=== PATIENT | female | born 1970 | race African-American/Black ===

== ENCOUNTER → 2016-06-20 | Day surgery (SDC) | payer MEDICAID ==
[~2016-06-20] VITALS: Ht 162.6 cm; Wt 73.5 kg
[~2016-06-20] MED LIST: BALANCED SALT IRRIG SOLN 15ML ONE; BALANCED SALT IRRIG SOLN COMB1 500ML OP ONE; BUPIVACAINE HCL/PF 0.75% (7.5MG/ML) 10ML ONE; CIPROFLOXACIN 0.3% OPHTH SOLN 2.5ML ONE; CYCLOPENTOLATE HCL 1% OPHTH DROPS 2ML LEFTEYE ONE; CYCLOPENTOLATE HCL 1% OPHTH DROPS 2ML ONE; DEXTROSE 50% WATER 50ML SYRINGE IV ONE; FENTANYL CITRATE/PF 50MCG/ML 2ML VIAL ONE; HYALURONATE SODIUM 14 MG/ML 0.85ML SYRINGE IO ONE; INSLAN SQ; INSU100I3 SQ; LACTATED RINGERS 1,000 ML IV SCH; LIDOCAINE HCL 2%/EPINEPHRINE 1:100,000 20 ML VIAL INFIL ONE; LISI-604 PO; MIDAZOLAM HCL 2 MG/2 ML VIAL ONE; MORPHINE SULFATE 2 MG/ML CPJ (NOT FOR IM USE) IV PRN; NAPR-681 PO; ONDANSETRON HCL 4MG/2ML VIAL IV PRN; PHENYLEPHRINE HCL 10% OPHTH DROPS 5ML LEFTEYE ONE; PREDNISOLONE ACETATE 1% OPHTH DROPS 1ML ONE; PROPOFOL 200MG/20ML VIAL IV ONE; RANI150T7 PO; SIMV40TA5 PO; SODIUM CHLORIDE 0.9% 1,000 ML IV SCH; TETRACAINE 0.5% OPHTH DROPS 4ML ONE; TROPICAMIDE 1% OPHTH DROPS 15ML LEFTEYE ONE; TROPICAMIDE 1% OPHTH DROPS 15ML ONE
[2016-06-20 11:00] LABS: UCG SCREEN NEGATIVE
== END | disposition home or self-care (01) ==
LOC: OR 10:15
PROVIDERS: ATTEND Ophthalmology
DX: H26.8 Other specified cataract (principal); I10 Essential (primary) hypertension; E11.9 Type 2 diabetes mellitus without complications; D64.89 Other specified anemias; E78.5 Hyperlipidemia, unspecified
CPT/HCPCS: 66984; 81025; 82962; J2250; J2405; J3010; J3490; J7120; J2704

== ENCOUNTER → 2022-04-04 | Day surgery (SDC) | payer MEDICAID ==
[~2022-04-04] VITALS: Ht 160 cm; Wt 63.5 kg
[~2022-04-04] MED LIST changes: +ATOR40TA70 PO; +BALANCED SALT IRRIG SOLN COMB1 500ML OP NR; -BALANCED SALT IRRIG SOLN COMB1 500ML OP ONE; -BUPIVACAINE HCL/PF 0.75% (7.5MG/ML) 10ML ONE; -CYCLOPENTOLATE HCL 1% OPHTH DROPS 2ML LEFTEYE ONE; +CYCLOPENTOLATE HCL 1% OPHTH DROPS 2ML RIGHTEYE SCH; -DEXTROSE 50% WATER 50ML SYRINGE IV ONE; +HYALURONATE SODIUM 10 MG/ML 0.55ML SYRINGE IO ONE; -HYALURONATE SODIUM 14 MG/ML 0.85ML SYRINGE IO ONE; -INSLAN SQ; +INSU100I24 SQ; -INSU100I3 SQ; +INSU100V34 SQ; -LACTATED RINGERS 1,000 ML IV SCH; -LIDOCAINE HCL 2%/EPINEPHRINE 1:100,000 20 ML VIAL INFIL ONE; +LIDOCAINE HCL/PF 2% 20 MG/ML 10ML VIAL ONE; -LISI-604 PO; +LISI20TA31 PO; -MORPHINE SULFATE 2 MG/ML CPJ (NOT FOR IM USE) IV PRN; +NEO/POLYMYX B SULF/DEXAMETH OPHTH OINT 3.5GM ONE; -ONDANSETRON HCL 4MG/2ML VIAL IV PRN; -PHENYLEPHRINE HCL 10% OPHTH DROPS 5ML LEFTEYE ONE; +PHENYLEPHRINE HCL 10% OPHTH DROPS 5ML ONE; +PHENYLEPHRINE HCL 10% OPHTH DROPS 5ML RIGHTEYE SCH; -PREDNISOLONE ACETATE 1% OPHTH DROPS 1ML ONE; +PREDNISOLONE ACETATE 1% OPHTH DROPS 5ML ONE; -PROPOFOL 200MG/20ML VIAL IV ONE; -RANI150T7 PO; -SIMV40TA5 PO; -TROPICAMIDE 1% OPHTH DROPS 15ML LEFTEYE ONE; +TROPICAMIDE 1% OPHTH DROPS 15ML RIGHTEYE SCH; +TRYPAN BLUE 0.5 ML DISP.SYRIN IO ONE
== END | disposition home or self-care (01) ==
LOC: OR 05:35
PROVIDERS: ATTEND Ophthalmology
DX: E11.36 Type 2 diabetes mellitus with diabetic cataract (principal); H25.89 Other age-related cataract; I10 Essential (primary) hypertension; E78.00 Pure hypercholesterolemia, unspecified; Z79.84 Long term (current) use of oral hypoglycemic drugs; Z79.899 Other long term (current) drug therapy; Z98.890 Other specified postprocedural states; Z20.822 Contact with and (suspected) exposure to COVID-19
CPT/HCPCS: 66982; 82962; 87426; C9803; J2250; J3010; J3490; Q9957; V2632